=== PATIENT | female | born 2000 | race American Indian/Alaskan Native ===

== ENCOUNTER 2021-09-05 11:11 | Emergency (ER) | payer MEDICAID ==
[2021-09-05] MEDS ORDERED: dexAMETHasone 20 MG/5 ML VIAL IV ONE (12:57)
[2021-09-05] MEDS ORDERED: KETOROLAC 30 MG/1 ML INJ IM ONE (12:57)
--- NOTE | 2021-09-05 13:23 | Emergency Department Report ---
ED ENT HPI - General Chief complaint: Sore Throat Stated complaint: SORE THROAT Source: patient Mode of arrival: Ambulatory Limitations: No Limitations - History of Present Illness Initial comments: 20-year-old female presents to the ED complaining of sore throat x2 days. Patient is complaining of painful swallowing, denies any drooling denies any coughing. Denies taking any prior medication. Patient is alert and oriented x3. Patient denies any recent URI. No acute distress noted. No ill appearance noted. MD complaint: sore throat Onset/Timin -: Sudden Severity: moderate Severity scale (0 -10): 8 Quality: aching Worsens with: swallowing Associated Symptoms: fever, pain with swallowing - Related Data Previous Rx's Medication Instructions Recorded Last Taken Type Acetaminophen/Codeine [Tylenol 1 tab PO Q6H PRN 3 Days #12 tab 09/05/21 Unknown Rx /Codeine # 3 tab] Ibuprofen [Motrin] 800 mg PO Q8HR PRN 15 Days #30 09/05/21 Unknown Rx tablet Penicillin V Potassium 500 mg PO BID 10 Days #20 tab 09/05/21 Unknown Rx predniSONE [Deltasone] 50 mg PO QDAY 3 Days #3 tab 09/05/21 Unknown Rx Allergies Allergy/AdvReac Type Severity Reaction Status Date / Time No Known Allergies Allergy Unverified 09/05/21 12:11 ED Dental HPI - General Chief complaint: Sore Throat Stated complaint: SORE THROAT Source: patient Mode of arrival: Ambulatory Limitations: No Limitations - Related Data Previous Rx's Medication Instructions Recorded Last Taken Type Acetaminophen/Codeine [Tylenol 1 tab PO Q6H PRN 3 Days #12 tab 09/05/21 Unknown Rx /Codeine # 3 tab] Ibuprofen [Motrin] 800 mg PO Q8HR PRN 15 Days #30 09/05/21 Unknown Rx tablet Penicillin V Potassium 500 mg PO BID 10 Days #20 tab 09/05/21 Unknown Rx predniSONE [Deltasone] 50 mg PO QDAY 3 Days #3 tab 09/05/21 Unknown Rx Allergies Allergy/AdvReac Type Severity Reaction Status Date / Time No Known Allergies Allergy Unverified 09/05/21 12:11 ED Review of Systems ROS: Stated complaint: SORE THROAT Other details as noted in HPI Constitutional: denies: chills, fever Eyes: denies: eye pain, eye discharge, vision change ENT: throat pain. denies: ear pain Respiratory: denies: cough, shortness of breath, wheezing Cardiovascular: denies: chest pain, palpitations Endocrine: no symptoms reported Gastrointestinal: denies: abdominal pain, nausea, diarrhea Genitourinary: denies: urgency, dysuria, discharge Musculoskeletal: denies: back pain, joint swelling, arthralgia Skin: denies: rash, lesions Neurological: denies: headache, weakness, paresthesias Psychiatric: denies: anxiety, depression Hematological/Lymphatic: denies: easy bleeding, easy bruising ED Past Medical Hx - Past Medical History Previous Medical History?: No - Surgical History Past Surgical History?: No - Social History Smoking Status: Never Smoker - Medications Home Medications: Home Medications Medication Instructions Recorded Confirmed Last Taken Type Acetaminophen/Codeine [Tylenol 1 tab PO Q6H PRN 3 Days #12 tab 09/05/21 Unknown Rx /Codeine # 3 tab] Ibuprofen [Motrin] 800 mg PO Q8HR PRN 15 Days #30 09/05/21 Unknown Rx tablet Penicillin V Potassium 500 mg PO BID 10 Days #20 tab 09/05/21 Unknown Rx predniSONE [Deltasone] 50 mg PO QDAY 3 Days #3 tab 09/05/21 Unknown Rx ED Physical Exam - General Limitations: No Limitations General appearance: alert, in no apparent distress - Head Head exam: Present: atraumatic, normocephalic - Eye Eye exam: Present: normal appearance - ENT ENT exam: Present: mucous membranes moist - Expanded ENT Exam Expanded Throat exam: Positive: tonsillar erythema, tonsillar exudate, other (anterior cervical lymphadenopathy) - Neck Neck exam: Present: normal inspection - Respiratory Respiratory exam: Present: normal lung sounds bilaterally. Absent: respiratory distress - Cardiovascular Cardiovascular Exam: Present: regular rate, normal rhythm. Absent: systolic murmur, diastolic murmur, rubs, gallop - GI/Abdominal GI/Abdominal exam: Present: soft, normal bowel sounds - Extremities Exam Extremities exam: Present: normal inspection - Back Exam Back exam: Present: normal inspection - Neurological Exam Neurological exam: Present: alert, oriented X3 - Psychiatric Psychiatric exam: Present: normal affect, normal mood - Skin Skin exam: Present: warm, dry, intact, normal color. Absent: rash ED Course Vital Signs 09/05/21 09/05/21 12:09 15:38 Temperature 100.3 F H 97.1 F L Pulse Rate 128 H 74 Respiratory 18 16 Rate Blood Pressure 132/79 Blood Pressure 118/74 [Right] O2 Sat by Pulse 100 96 Oximetry ED Medical Decision Making - Medical Decision Making 20-year-old female presents to the ED complaining of sore throat x2 days. Patient is complaining of painful swallowing, denies any drooling denies any coughing. Denies taking any prior medication. Patient is alert and oriented x3. Patient denies any recent URI. No acute distress noted. No ill appearance noted. Physical examination showed patient had a tonsillomegaly, tonsillar exudate , anterior cervical lymphadenopathy. Rapid rapid strep antigen a negative. Toradol 30 mg given and Decadron 10 mg given IM. Rechecked the patient is resting quietly quietly and comfortable and feeling better. I discussed the results of diagnostic study, my clinical impression and the plan for further treatment with the patient. Patient agrees with plan and discharge at this present time. All question addressed. I have given the patient instruction regarding a diagnosis ,expectation ,follow- up and return precaution. I explained to the patient that emergent condition may arise and to return to the ED for new worsen and any new persisting condition. I have explained the importance of following up with the primary care physician or referral physician listed below has instructed. The patient verbalized understanding of discharge instruction. Critical care attestation.: If time is entered above; I have spent that time in minutes in the direct care of this critically ill patient, excluding procedure time. ED Disposition Clinical Impression: Acute tonsillitis Qualifiers: Pharyngitis/tonsillitis etiology: unspecified etiology Qualified Code(s): J03.90 - Acute tonsillitis, unspecified Disposition: 01 HOME / SELF CARE / HOMELESS Is pt being admited?: No Does the pt Need Aspirin: No Condition: Stable Instructions: Tonsillitis, [id number] Additional Instructions: Take medication as prescribed Return to the ED for any worsening symptom Up with [address] [place],[id number] Prescriptions: predniSONE [Deltasone] 50 mg PO QDAY 3 Days #3 tab Ibuprofen [Motrin] 800 mg PO Q8HR PRN 15 Days #30 tablet PRN Reason: Pain, Mild (1-3) Penicillin V Potassium 500 mg PO BID 10 Days #20 tab Acetaminophen/Codeine [Tylenol /Codeine # 3 tab] 1 tab PO Q6H PRN 3 Days #12 tab PRN Reason: Pain, Mild (1-3) Referrals: [facility] [Provider Group] - 3-5 Days Forms: Work/School Release Form(ED)
[2021-09-05] MEDS ORDERED: dexAMETHasone 20 MG/5 ML VIAL IM ONE (14:22)
[2021-09-05 15:40] VITALS: BP 118/74
== END 2021-09-05 15:38 | disposition home or self-care (01) ==
LOC: ED 11:11
DX: J03.90 Acute tonsillitis, unspecified (principal); Z79.899 Other long term (current) drug therapy
CPT/HCPCS: 87116; 87430; 93005; 96372; 96374; 99283; J1100; J1885